=== PATIENT | female | born 1945 | race Caucasian/White ===

== ENCOUNTER → 2016-11-18 | Outpatient (CLI) | payer MEDICARE ==
[~2016-11-18] MED LIST: ALLEGRA60 MG PO; ASPIRIN LO-DOSE81 MG PO; ASTEPRO205.5 MCG/ NOSE; CYMBALTA60 MG PO; GLUCOSAMINE CH1 EAC3 PO; LASIX40 MG PO; LIPITOR40 MG PO; MULTI-DAY VITA1 EACH PO; NASONEX NASAL S17 GM NOSE; OSCAL + D500 MG PO; PLAQUENIL200 MG PO; PRILOSEC PO; SALINE NASAL SP88 ML NOSE; TYLENOL EXTRA500 MG PO; VITAMIN D1000 UNIT PO
== END ==
LOC: GBCOE 11-14 07:00
DX: Z12.31 Encounter for screening mammogram for malignant neoplasm of breast (principal)
CPT/HCPCS: G0202